=== PATIENT | male | born 1950 | race Caucasian/White ===

== ENCOUNTER → 2020-08-03 | Outpatient (CLI) | payer MEDICARE ==
[~2020-08-03] MED LIST: ACET600C6 PO; ALPH300C PO; CHRO400T3 PO; CURAMED PO; CYAN1TAB5 PO; LYSI500T25 PO; METH500C3 PO; MILK500C PO; NATURE THYROID PO; ORTHO BIOTIC PO; PRAS1TAB PO; UBIQ100C2 PO; [UNRECOGNIZED DRUG - OTHER] PO; [UNRECOGNIZED DRUG - OTHER] PO; [UNRECOGNIZED DRUG - OTHER] PO; [UNRECOGNIZED DRUG - OTHER] PO; [UNRECOGNIZED DRUG - OTHER] PO; [UNRECOGNIZED DRUG - OTHER] PO; [UNRECOGNIZED DRUG - OTHER] PO; [UNRECOGNIZED DRUG - OTHER] PO; [UNRECOGNIZED DRUG - OTHER] PO
[2020-08-03 10:21] LABS: MICROSCOPIC AUTO
[2020-08-03 10:26] LABS: ANION GAP 5 mmol/L (5-15); CHLORIDE 112 mmol/L (98-107); CREATININE 0.89 mg/dL (0.7-1.3)
== END | disposition home or self-care (01) ==
LOC: STAR 08:26
PROVIDERS: ATTEND Urology
DX: Z01.818 Encounter for other preprocedural examination (principal); N32.89 Other specified disorders of bladder; Z20.822 Contact with and (suspected) exposure to COVID-19
CPT/HCPCS: 36415; 80048; 81001; 87086; 93005; U0003; U0005

== ENCOUNTER 2020-08-09 08:53 | Day surgery (SDC) | payer MEDICARE ==
[~2020-08-09] VITALS: Ht 180.3 cm; Wt 86.7 kg
[2020-08-09] MEDS ORDERED: LACTATED RINGERS 1,000 ML IV SCH (09:30)
[2020-08-09] MEDS ORDERED: CHLORHEXIDINE 15 ML UDC PO ONE (09:30)
[2020-08-09] MEDS ORDERED: MIDAZOLAM 1 MG/ML, 2ML ONE (09:41)
[2020-08-09] MEDS ORDERED: FENTANYL PF 100 MCG/2ML ONE ×2 (09:41→11:15)
[2020-08-09 09:56] VITALS: BP 139/85
[2020-08-09] MEDS ORDERED: PROMETHAZINE 25 MG/ML, 1ML IVPush PRN (10:00)
[2020-08-09] MEDS ORDERED: LABETALOL 5MG/ML, 20ML IV PRN (10:00)
[2020-08-09] MEDS ORDERED: MEPERIDINE/PF 25MG/0.5ML IVPush PRN (10:00)
[2020-08-09] MEDS ORDERED: DIPHENHYDRAMINE 50 MG/ML, 1ML IVPush PRN (10:00)
[2020-08-09] MEDS ORDERED: HALOPERIDOL 5 MG/ML IV PRN (10:00)
[2020-08-09] MEDS ORDERED: OXYcodone 5 MG/5 ML ORAL.SOL UDC PO PRN (10:00)
[2020-08-09] MEDS ORDERED: hydrALAzine 20 MG/ML, 1ML IV PRN (10:00)
[2020-08-09] MEDS ORDERED: HYDROmorphone 1 MG/ML, 1ML INJ IVPush PRN (10:00)
[2020-08-09] MEDS ORDERED: ACETAMINOPHEN 325 MG TABLET PO PRN (10:00)
[2020-08-09] MEDS ORDERED: GLYCOPYRROLATE 0.2MG/1ML, 5ML ONE (10:39)
[2020-08-09] MEDS ORDERED: DEXAMETHASONE 4 MG/ML, 1ML ONE (10:39)
[2020-08-09] MEDS ORDERED: SUCCINYLCHOLINE 20 MG/ML, 10ML ONE (10:39)
[2020-08-09] MEDS ORDERED: NEOSTIGMINE 1 MG/ML, 10ML ONE (10:39)
[2020-08-09] MEDS ORDERED: PROPOFOL 10 MG/ML, 20ML ONE (10:39)
[2020-08-09] MEDS ORDERED: ONDANSETRON 2MG/ML, 2ML ONE (10:39)
[2020-08-09] MEDS ORDERED: CEFAZOLIN 1,000 MG ONE (10:39)
[2020-08-09] MEDS ORDERED: ROCURONIUM 10MG/ML,5ML ONE (10:39)
[2020-08-09] MEDS: FENTANYL PF 100 MCG/2ML IV PRN ×2 (11:17→11:29)
[2020-08-09] MEDS ORDERED: GEMCITABINE HCL 1,000 MG in SODIUM CHLORIDE 0.9% 23.7 ML IS ONE (11:30)
[2020-08-09] MEDS ORDERED: ACETAMINOPHEN 325 MG TABLET ONE (11:31)
[2020-08-09] MEDS ORDERED: OXYcodone 5 MG/5 ML ORAL.SOL UDC ONE (11:31)
== END 2020-08-09 13:40 | disposition home or self-care (01) ==
LOC: OUT 08:53
PROVIDERS: ATTEND Urology
DX: D49.4 Neoplasm of unspecified behavior of bladder (principal); C67.3 Malignant neoplasm of anterior wall of bladder; N40.0 Benign prostatic hyperplasia without lower urinary tract symptoms; Z79.890 Hormone replacement therapy; Z79.899 Other long term (current) drug therapy
CPT/HCPCS: 51720; 52234; 88307; J0330; J0690; J1100; J2250; J2405; J2704; J3010; J7120; J2710